=== PATIENT | female | born 1985 | race Hispanic/Latino ===

== ENCOUNTER 2018-12-19 11:12 | Outpatient (CLI) | payer OTHER ==
--- NOTE | 2018-12-19 14:17 | RAD ---
TWO VIEWS CHEST: Date: 12-19-18 Provided Clinical History: Chest pain. FINDINGS: Cardiac and mediastinal silhouette is within normal limits. No focal airspace disease, pleural fluid, or pneumothorax. Cholecystectomy clips are seen in the right upper quadrant. IMPRESSION: No evidence of acute cardiopulmonary process. POS: OFF
== END 2018-12-19 11:13 | disposition home or self-care (01) ==
LOC: BICRAD 11:12
PROVIDERS: ATTEND Family Medicine
DX: R07.89 Other chest pain (principal)
CPT/HCPCS: 71046

== ENCOUNTER 2021-02-16 11:54 | Outpatient (CLI) | payer OTHER | END 2021-02-16 11:55 | disposition home or self-care (01) | LOC: BICRAD 11:54 | PROVIDERS: ATTEND Internal Medicine Rheumatology | DX: M05.79 Rheumatoid arthritis with rheumatoid factor of multiple sites without organ or systems involvement (principal) ==